=== PATIENT | male | born 1960 | race Hispanic/Latino ===

== ENCOUNTER 2022-01-21 15:40 | Emergency (ER) | payer OTHER, SELFPAY ==
[2022-01-21] VITALS (14 sets, daily range): BP systolic 158–201; BP diastolic 71–110; PULSE 62–89; RESP 12–24; TEMP 36.9; O2SAT 95–99
--- NOTE | ~2022-01-21 | XR_ITS ---
XR chest 2V DATE: 01/21/2022 16:46 INDICATION: Right chest pain TECHNIQUE: PA and lateral views COMPARISON: None FINDINGS: Normal heart size. There is mild aortic tortuosity. No hilar or mediastinal enlargement. No pulmonary infiltrate or consolidation, pleural effusion or pulmonary vascular or pneumothorax. Degenerative spurring of the thoracic spine. IMPRESSION: No active cardiopulmonary disease Reviewed, dictated and finalized at location A.
--- NOTE | ~2022-01-21 | CT_ITS ---
EXAMINATION: CTA chest PE protocol DATE: 01/21/2022 20:30 INDICATION: cough, hemoptysis, chest pain TECHNIQUE: Computed tomography angiography (CTA) of the chest was performed with 100 mL Omnipaque-350 intravenous contrast timed to evaluate the pulmonary arteries. Coronal maximum intensity projection 3D-reconstructions were created by the technologist. The dose-length product (DLP) was 767.74 mGy-cm. Automated exposure control and iterative reconstruction technique were employed. COMPARISON: None. FINDINGS: Study quality: Degraded by contrast phase in the first imaging set; images limited by beam hardening, and quantum mottle as well as significant motion artifact in the second imaging set. Segmental embol i could be missed, particularly in the upper lobes. Pulmonary arteries: No pulmonary emboli detected, within the constraints noted above. Thoracic aorta: Normal. Lung parenchyma and airways: Clear. Thoracic inlet, axillae and chest wall: Unremarkable. Mediastinum: Normal. Heart and pericardium: Normal. Coronary artery calcifications: Absent. Pleura: Unremarkable. Upper abdomen: No significant finding. Bones: No acute osseous finding. IMPRESSION: Significantly limited examination, even after reimaging/reinjecting. No evidence of central pulmonary embolus. Segmental emboli could be missed, particularly in the upper lobes. Reviewed, dictated and finalized at location K. IMPRESSION: Significantly limited examination, even after reimaging/reinjecting. No evidenc e of central pulmonary embolus. Segmental emboli could be missed, particularly in the upper lobes.
--- NOTE | 2022-01-21 15:42 | ECG_ITS ---
Measurements Intervals [place] Rate: 83 P: 56 ID: [id number] QRS: -3 QRSD: 86 T: 36 QT: 339 QTc: 398 Interpretive Statements SINUS RHYTHM BASELINE ARTIFACT POSSIBLE LEFT ATRIAL ENLARGEMENT POSSIBLE LEFT VENTRICULAR HYPERTROPHY BORDERLINE ECG NO PREVIOUS ECG AVAILABLE FOR COMPARISON Electronically Signed On 01-21-2022 16:48:06 CDT by Dorian Issa M.D.
[2022-01-21 15:54] LABS: Basophils Absolute Auto 0.1 K/mm3 (0.0-0.1); Basophils Percent Auto 0.8 % (0.2-1.2); Eosinophils Absolute Auto 0.2 K/mm3 (0-0.3); Eosinophils Percent Auto 2.4 % (0-4.4); Hematocrit 46.5 % (42.0-52.0); Hemoglobin 15.6 g/dL (14.0-18.0); Immature Granulocyte Absolute 0.02 K/mm3 (0.00-0.031); Immature Granulocyte Percent A 0.3 % (0-0.5); Lymphocytes Absolute Auto 1.79 K/mm3 (0.9-3.2); Lymphocytes Percent Auto 22.7 % (18.3-44.2); Mean Corpuscular HGB Conc 33.5 g/dl (32-36); Mean Corpuscular Hemoglobin 30.3 pg (26-34); Mean Corpuscular Volume 90.3 fl (80-100); Mean Platelet Volume 13.4 fl (7.4-10.4); Monocytes Absolute Auto 0.5 K/mm3 (0.1-0.6); Monocytes Percent Auto 6.5 % (2.6-8.5); Neutrophils Absolute Auto 5.3 K/mm3 (1.3-6.7); Neutrophils Percent Auto 67.3 % (45.5-73.1); Platelet Count Result 170 k/mm3 (150-375); Red Blood Count 5.15 M/mm3 (4.6-6.20); Red Cell Distribution Width 12.6 % (11.5-14.5); White Blood Count 7.9 K/mm3 (4.5-10.0)
[2022-01-21 16:04] LABS: Alanine Aminotransferase 20 U/L (6-50); Albumin Level 4.7 g/dL (3.5-5.1); Alkaline Phosphatase 118 U/L (38-126); Anion Gap 11 mmol/L (8-16); Aspartate Amino Transferase 23 U/L (17-59); Bilirubin,Total 1.3 mg/dL (0.2-1.3); Blood Urea Nitrogen 12 mg/dL (9-20); Calcium 8.7 mg/dL (8.4-10.2); Carbon Dioxide 23 mmol/L (22-30); Chloride 105 mmol/L (98-107); Estimated CRCL calculation 88 ml/min; Estimated Glomerular Filt Rate > 60; Glucose 112 mg/dL (65-110); Lipase 256 U/L (23-300); Potassium 4.1 mmol/L (3.4-5.0); Sodium 139 mmol/L (137-145)
[2022-01-21 16:05] LABS: Platelet Estimate Adequate (Adequate)
[2022-01-21 16:08] LABS: Partial Thromboplastin Time 25.7 SECONDS (22.3-36.8); Prothrombin Time 12.2 Seconds (11.1-14.7)
[2022-01-21 16:16] LABS: Troponin I < 0.012 ng/mL (0.000-0.034)
--- NOTE | 2022-01-21 17:16 | ED.CHESTPAIN ---
HPI - Chest Pain General Chief Complaint: Chest Pain Stated Complaint: chest pain x 1 month Time Seen by Provider: 01/21/22 17:16 History of Present Illness HPI narrative: Patient is a 61-year-old male who has not seen a primary care physician in many years, presenting to the emergency department for evaluation of chest pain, cough. Patient reports chest pain over the past month as well as pain with deep inspiration. Reports a sore sensation in his bilateral shoulders but denies any middle or lower back pain. He denies any radiation of the pain to the jaw, neck, flank. He does report right shoulder pain at times. He denies any current shortness of breath but does report a cough with yellow sputum production and occasional hemoptysis. He denies any abdominal pain, nausea, vomiting, diaphoresis. Patient has not seen a primary care physician in decades. He denies any history of past medical problems. Denies any past surgeries. He does not smoke. He denies leg swelling or calf pain. Related Data Allergies Allergy/AdvReac Type Severity Reaction Status Date / Time No Known Allergies Allergy Verified 01/21/22 17:20 Review of Systems Review of Systems: CONSTITUTIONAL: Denies fever, chills, or sweats. ENT: Denies rhinorrhea, congestion, sore throat, or otalgia. CARDIOVASCULAR:Reports mild chest pain, without palpitations, denies edema RESPIRATORY: Reports cough and dyspnea GASTROINTESTINAL: Denies abdominal pain, nausea, vomiting, or diarrhea. GENITOURINARY: Denies dysuria or hematuria. SKIN: Denies rash or itching. MUSCULOSKELETAL: Denies back pain, joint pain, or myalgia. NEUROLOGIC: Denies headache, numbness, or weakness. [facility] Social History Social History (Updated 01/21/22 @ 17:41 by Serena Piña MD) Smoking status: Never smoker Alcohol intake: never Substance use: never Living arrangements: with family Gender identity (if verbalized by the patient): Male Exam Narrative: GENERAL: Awake, alert, conversant HEAD: Normocephalic, atraumatic. EYES: PERRLA and EOMI. ENT: Nares clear, no rhinorrhea or epistaxis. Mucous membranes moist. NECK: Supple. CHEST: No respiratory distress, breathing even and non labored, no chest wall tenderness HEART: Regular rate, sinus rhythm ABDOMEN:Non distended, non tender EXTREMITIES: Normal range of motion. No edema. SKIN: Warm, dry, no rash. NEURO:No focal deficits. Alert and oriented x3 Course Vital Signs Vital signs: Vital Signs Temperature 36.9 C 01/21/22 15:41 Pulse Rate 89 01/21/22 15:41 Respiratory Rate 19 01/21/22 15:41 Blood Pressure 180/110 H 01/21/22 15:41 Pulse Oximetry 99 01/21/22 15:41 Oxygen Delivery Room Air 01/21/22 15:41 Temperature 36.9 C 01/21/22 15:41 Pulse Rate 83 01/21/22 20:39 Respiratory Rate 18 01/21/22 20:39 Blood Pressure 162/94 H 01/21/22 20:44 Pulse Oximetry 98 01/21/22 20:39 Oxygen Delivery Room Air 01/21/22 15:41 MDM - Chest Pain MDM Narrative Medical decision making narrative: Pt presenting for evaluation of cough, chest pain. Patient has not seen a physician in many years. At the time of assessment is noted to be quite hypertensive. Patient is not on any antihypertensive medication. Patient EKG without acute ischemic changes. Patient without neck pain, shoulder pain, jaw pain, diaphoresis, nausea. No known history of diabetes. Denies history of previous heart attack or chest pain such as this. States that has been ongoing over the past month. ACS seems unlikely based on chronicity of symptoms. Considered mass versus pneumonia, COVID, chronic sinus drainage, hypertensive urgency. Patient was given IV hydralazine, oral amlodipine. His troponins were undetected. His CT is negative for PE, mass. Plan for discharge home with close follow-up, he will be started on oral amlodipine. Most consistent with hypertensive urgency. Lab Data Result diagrams: 01/21/22 15:47
[2022-01-21] MEDS: Please add drug allergy info to patient profile. 1 EACH XX (17:21)
[2022-01-21] MEDS: hydrALAZINE HCL 20 MG/ML VIAL 10 MG IV PUSH (18:08)
[2022-01-21] MEDS: amLODIPine BESYLATE 5 MG TABLET PO (18:09)
[2022-01-21 18:48] LABS: D Dimer 0.37 ug/mL (<0.48)
[2022-01-21 19:31] LABS: NT Pro B Type Natriuretic Pept 211 pg/mL (5-100); Troponin I < 0.012 ng/mL (0.000-0.034)
== END 2022-01-21 21:02 | disposition home or self-care (01) ==
PROVIDERS: Emergency Medicine; Emergency Provider Emergency Medicine
DX: I16.0 Hypertensive urgency (principal); R05.9 Cough, unspecified
CPT/HCPCS: 36415; 71046; 71275; 80053; 83690; 83880; 84484; 85025; 85380; 85610; 85730; 93005; 96374; 99284; A9270; J0360; Q9967